=== PATIENT | female | born 1995 | race African-American/Black ===

== ENCOUNTER 2017-11-26 10:32 | Emergency (ER) | payer OTHER ==
[2017-11-26 11:08] LABS: HEMOGLOBIN 10.7 g/dl (12.0-16.0); IMMATURE GRANULOCYTES 0.3 % (0.0-1.0); MEAN CELL VOLUME 91.4 fL CALC (80.0-100.0); MEAN CORPUSCULAR HGB 27.9 pG CALC (26.0-32.0); MEAN CORPUSCULAR HGB CONC 30.6 g/L CALC (32.0-36.0); NEUT# 10.04 thou/uL (2.00-7.15); RED BLOOD COUNT 3.83 mill/uL (4.20-5.60); RED CELL DISTRI WIDTH 13.2 % (11.5-15.5)
[2017-11-26 11:33] LABS: ALBUMIN 4.2 g/dL (3.2-5.0); ALKALINE PHOSPHATASE 69 u/l (38-126); ANION GAP 21 (6-22 (CALC)); BILIRUBIN, TOTAL 0.6 mg/dL (0.0-1.4); BUN 13 mg/dL (7-17); BUN/CREATININE RATIO 16 (12-20 (CALC)); CARBON DIOXIDE 18 mmol/l (22-30); CHLORIDE 108 mmol/l (95-108); CREATININE 0.8 mg/dL (0.5-1.0); GFR > 60 ML/MIN (>=60 (CALC)); GFR FOR AFR.AMER. > 60 ML/MIN (>=60 (CALC)); POTASSIUM 3.5 mmol/l (3.5-5.1); SGOT/AST 45 u/l (14-36); SGPT/ALT 24 u/l (9-52); SODIUM 144 mmol/l (137-146); TOTAL PROTEIN 7.8 g/dL (6.3-8.2)
[2017-11-26 12:46] LABS: URINE BILIRUBIN - DIPSTICK NEGATIVE (NEGATIVE); URINE BLOOD DIPSTICK NEGATIVE (NEGATIVE); URINE GLUCOSE - DIPSTICK NEGATIVE (NEGATIVE); URINE KETONE 40 mg/dL (NEGATIVE); URINE LEUK ESTERASE NEGATIVE (NEGATIVE); URINE NITRITE - DIPSTICK NEGATIVE (Negative); URINE PH 5.5 (4.5-8.0); URINE PROTEIN - DIPSTICK TRACE mg/dL (NEG-TRACE); URINE SPECIFIC GRAVITY >=1.030
[2017-11-26 12:47] LABS: URINE CLARITY SL CLOUDY; URINE COLOR DK. YELLOW
[2017-11-26 12:49] LABS: BARBITURATES NEGATIVE (NEGATIVE); COCAINE NEGATIVE (NEGATIVE); METHADONE NEGATIVE (NEGATIVE); OXCYCODONE NEGATIVE (NEGATIVE); TETRAHYDROCANNABIONOL NEGATIVE (NEGATIVE); TRICYLIC ANTIDEPRESSANTS NEGATIVE (NEGATIVE)
[2017-11-26 13:45] VITALS: BP 104/67
== END 2017-11-26 13:51 | disposition home or self-care (01) | DRG 312 ==
LOC: ED 10:32
PROVIDERS: Emergency Medicine
DX: R55 Syncope and collapse (principal); R51 Headache; Y93.E1 Activity, personal bathing and showering; Y92.002 Bathroom of unspecified non-institutional (private) residence as the place of occurrence of the external cause

== ENCOUNTER 2018-07-24 15:20 | Emergency (ER) | payer OTHER ==
[~2018-07-24] VITALS: Ht 162.6 cm; Wt 60.0 kg
[2018-07-24 19:33] LABS: HEMATOCRIT 39.4 % (37.0-47.0); HEMOGLOBIN 12.4 g/dl (12.0-16.0); IMMATURE GRANULOCYTES 0.1 % (0.0-5.0); MEAN CELL VOLUME 90.2 fL CALC (80.0-100.0); MEAN CORPUSCULAR HGB 28.4 pG CALC (26.0-32.0); MEAN CORPUSCULAR HGB CONC 31.5 g/L CALC (32.0-36.0); NEUT# 4.38 thou/uL (2.00-7.15); RED BLOOD COUNT 4.37 mill/uL (4.20-5.60); RED CELL DISTRI WIDTH 12.5 % (11.5-15.5)
[2018-07-24 21:11] LABS: URINE BILIRUBIN - DIPSTICK NEGATIVE (NEGATIVE); URINE BLOOD DIPSTICK NEGATIVE (NEGATIVE); URINE COLOR YELLOW; URINE GLUCOSE - DIPSTICK NEGATIVE (NEGATIVE); URINE KETONE >=80 mg/dL (NEGATIVE); URINE LEUK ESTERASE NEGATIVE (NEGATIVE); URINE NITRITE - DIPSTICK NEGATIVE (Negative); URINE PROTEIN - DIPSTICK NEGATIVE (NEG-TRACE); URINE SPECIFIC GRAVITY 1.025
[2018-07-24 21:55] VITALS: BP 132/82
== END 2018-07-24 21:55 | disposition home or self-care (01) ==
LOC: ED 15:20
PROVIDERS: Family Medicine
DX: O20.0 Threatened abortion (principal); Z3A.00 Weeks of gestation of pregnancy not specified; R10.11 Right upper quadrant pain; N93.9 Abnormal uterine and vaginal bleeding, unspecified

== ENCOUNTER → 2018-10-24 | Outpatient (REF) | payer OTHER ==
[2018-10-24 11:16] LABS: HEMATOCRIT 43.2 % (37.0-47.0); HEMOGLOBIN 12.9 g/dl (12.0-16.0); IMMATURE GRANULOCYTES 0.4 % (0.0-5.0); MEAN CELL VOLUME 93.7 fL CALC (80.0-100.0); MEAN CORPUSCULAR HGB CONC 29.9 g/L CALC (32.0-36.0); NEUT# 3.05 thou/uL (2.00-7.15); RED BLOOD COUNT 4.61 mill/uL (4.20-5.60)
[2018-10-24 11:41] LABS: ALBUMIN 5.6 g/dL (3.2-5.0); ALKALINE PHOSPHATASE 89 u/l (38-126); ANION GAP 17 (6-22 (CALC)); BILIRUBIN, TOTAL 0.7 mg/dL (0.0-1.4); BUN 14 mg/dL (7-17); BUN/CREATININE RATIO 19 (12-20 (CALC)); CALCULATED LDLCHOLESTEROL 35 mg/dL (62-129 (CALC)); CARBON DIOXIDE 24 mmol/l (22-30); CHLORIDE 103 mmol/l (95-108); CHOLESTEROL HDL RATIO 1.4 (<4.4 (CALC)); CREATININE 0.8 mg/dL (0.5-1.0); GFR > 60 ML/MIN (>=60 (CALC)); GFR FOR AFR.AMER. > 60 ML/MIN (>=60 (CALC)); HDL CHOLESTEROL 97 mg/dL (>=40); POTASSIUM 4.4 mmol/l (3.5-5.1); SGOT/AST 29 u/l (14-36); SODIUM 140 mmol/l (137-146); TOTAL CHOLESTEROL 138 mg/dl (0-199); TOTAL PROTEIN 9.4 g/dL (6.3-8.2); TOTAL TRIGLYCERIDES 32 mg/dl (30-149); VLDL CHOLESTROL 6 mg/dl (2-29 (CALC))
[2018-10-24 12:13] LABS: TSH, 3RD GENERATION 1.58 uIU/mL (0.47 - 4.68)
[2018-10-31 05:46] LABS: THYROID PEROXIDASE AB_i 1 IU/mL (<9)
== END | disposition home or self-care (01) ==
LOC: LAB 09:52
DX: Z00.00 Encounter for general adult medical examination without abnormal findings (principal)

== ENCOUNTER 2018-12-13 08:47 | Emergency (ER) | payer OTHER ==
[~2018-12-13] VITALS: Ht 162.6 cm; Wt 57.3 kg
[2018-12-13 09:25] LABS: IMMATURE GRANULOCYTES 0.4 % (0.0-5.0); MEAN CELL VOLUME 90.2 fL CALC (80.0-100.0); MEAN CORPUSCULAR HGB 28.2 pG CALC (26.0-32.0); MEAN CORPUSCULAR HGB CONC 31.3 g/L CALC (32.0-36.0); NEUT# 2.74 thou/uL (2.00-7.15); RED BLOOD COUNT 3.86 mill/uL (4.20-5.60); RED CELL DISTRI WIDTH 13.4 % (11.5-15.5)
[2018-12-13 09:27] LABS: HEMATOCRIT 34.8 % (37.0-47.0); HEMOGLOBIN 10.9 g/dl (12.0-16.0)
[2018-12-13 09:45] LABS: ALBUMIN 4.3 g/dL (3.2-5.0); ALKALINE PHOSPHATASE 68 u/l (38-126); ANION GAP 11 (6-22 (CALC)); BUN 13 mg/dL (7-17); BUN/CREATININE RATIO 19 (12-20 (CALC)); CARBON DIOXIDE 26 mmol/l (22-30); CHLORIDE 106 mmol/l (95-108); CREATININE 0.7 mg/dL (0.5-1.0); GFR > 60 ML/MIN (>=60 (CALC)); GFR FOR AFR.AMER. > 60 ML/MIN (>=60 (CALC)); LIPASE 47 u/l (23-300); POTASSIUM 4.3 mmol/l (3.5-5.1); SGOT/AST 23 u/l (14-36); SODIUM 138 mmol/l (137-146); TOTAL PROTEIN 7.4 g/dL (6.3-8.2)
[2018-12-13 09:47] LABS: BILIRUBIN, TOTAL 0.4 mg/dL (0.0-1.4)
[2018-12-13 10:02] LABS: URINE BILIRUBIN - DIPSTICK NEGATIVE (NEGATIVE); URINE BLOOD DIPSTICK MODERATE (NEGATIVE); URINE COLOR YELLOW; URINE GLUCOSE - DIPSTICK NEGATIVE (NEGATIVE); URINE KETONE NEGATIVE (NEGATIVE); URINE LEUK ESTERASE NEGATIVE (NEGATIVE); URINE NITRITE - DIPSTICK NEGATIVE (Negative); URINE PH 6.5 (4.5-8.0); URINE PROTEIN - DIPSTICK NEGATIVE (NEG-TRACE)
[2018-12-13 10:15] LABS: URINE SQUAMOUS EPITHELIAL CELL FEW EPI/hpf (0-FEW); URINE WBC 0-2 WBC/hpf (0-5)
[2018-12-13 10:34] VITALS: BP 140/68
[2018-12-13] MEDS ORDERED: DOXYCYC MONO100 M2 PO (18:34)
== END 2018-12-13 10:57 | disposition home or self-care (01) ==
LOC: ED 08:47
PROVIDERS: Family Medicine
DX: R10.31 Right lower quadrant pain (principal); L29.9 Pruritus, unspecified
CPT/HCPCS: Q9967

== ENCOUNTER 2018-12-13 16:43 | Emergency (ER) | payer OTHER ==
[~2018-12-13] VITALS: Ht 162.6 cm; Wt 57.0 kg
[2018-12-13 18:34] VITALS: BP 136/82
[2018-12-13] MEDS ORDERED: DOXYCYC MONO100 M2 PO (18:34)
== END 2018-12-13 18:53 | disposition home or self-care (01) ==
LOC: ED 16:43
DX: Z03.89 Encounter for observation for other suspected diseases and conditions ruled out (principal); N83.201 Unspecified ovarian cyst, right side; R10.9 Unspecified abdominal pain

== ENCOUNTER 2019-01-09 20:57 | Emergency (ER) | payer OTHER ==
[~2019-01-09] VITALS: Ht 162.6 cm; Wt 57.0 kg
[~2019-01-09 20:57] MED LIST: DOXYCYC MONO100 M2 PO
[2019-01-09 21:34] LABS: URINE BILIRUBIN - DIPSTICK NEGATIVE (NEGATIVE); URINE BLOOD DIPSTICK MODERATE (NEGATIVE); URINE COLOR YELLOW; URINE GLUCOSE - DIPSTICK NEGATIVE (NEGATIVE); URINE KETONE TRACE mg/dL (NEGATIVE); URINE NITRITE - DIPSTICK NEGATIVE (Negative); URINE PROTEIN - DIPSTICK TRACE mg/dL (NEG-TRACE); URINE UROBILINOGEN - DIPSTICK 0.2 E.U./dL (0.2)
[2019-01-09 21:41] LABS: URINE LEUK ESTERASE LARGE (NEGATIVE)
[2019-01-09 21:52] LABS: URINE RBC TNTC RBC/hpf (0-5)
[2019-01-09 21:53] LABS: URINE BACTERIA FEW hpf; URINE SQUAMOUS EPITHELIAL CELL FEW EPI/hpf (0-FEW); URINE WBC TNTC WBC/hpf (0-5)
[2019-01-09] MEDS ORDERED: BACTRIM DS1 TAB PO (22:01)
[2019-01-09 22:08] VITALS: BP 123/80
== END 2019-01-09 22:13 | disposition home or self-care (01) ==
LOC: ED 20:57
PROVIDERS: Family Medicine
DX: N30.00 Acute cystitis without hematuria (principal); B96.20 Unspecified Escherichia coli [E. coli] as the cause of diseases classified elsewhere

== ENCOUNTER 2019-02-28 15:48 | Emergency (ER) | payer OTHER ==
[~2019-02-28] VITALS: Ht 162.6 cm; Wt 57.7 kg
[~2019-02-28 15:48] MED LIST changes: +BACTRIM DS1 TAB PO
[2019-02-28] MEDS ORDERED: AMOXICILLIN500 M2 PO (16:05)
[2019-02-28 16:10] VITALS: BP 118/75
[2019-03-01] MEDS ORDERED: DIFLUCAN100 M1 PO (20:43)
== END 2019-02-28 16:10 | disposition home or self-care (01) ==
LOC: ED 15:48
DX: J02.0 Streptococcal pharyngitis (principal)

== ENCOUNTER 2019-03-01 19:39 | Emergency (ER) | payer OTHER ==
[~2019-03-01] VITALS: Ht 162.6 cm; Wt 57.7 kg
[~2019-03-01 19:39] MED LIST changes: +AMOXICILLIN500 M2 PO
[2019-03-01] MEDS ORDERED: DIFLUCAN100 M1 PO (20:43)
[2019-03-01 20:49] VITALS: BP 124/73
== END 2019-03-01 20:54 | disposition home or self-care (01) ==
LOC: ED 19:39
DX: B37.3 Candidiasis of vulva and vagina (principal)

== ENCOUNTER 2021-05-08 14:20 | Emergency (ER) | payer OTHER ==
[~2021-05-08] VITALS: Ht 162.6 cm; Wt 74.0 kg
[~2021-05-08 14:20] MED LIST changes: +DIFLUCAN100 M1 PO
[2021-05-08 15:27] LABS: HEMATOCRIT 35.9 % (37.0-47.0); HEMOGLOBIN 11.3 g/dl (12.0-16.0); MEAN CELL VOLUME 88.2 fL CALC (80.0-100.0); MEAN CORPUSCULAR HGB 27.8 pG CALC (26.0-32.0); MEAN CORPUSCULAR HGB CONC 31.5 g/dL CAL (32.0-36.0); NEUT# 3.01 thou/uL (2.00-7.15); RED BLOOD COUNT 4.07 mill/uL (4.20-5.60); RED CELL DISTRI WIDTH 13.7 % (11.5-15.5)
[2021-05-08 15:47] LABS: ALBUMIN 4.3 g/dL (3.2-5.0); ALKALINE PHOSPHATASE 91 u/l (38-126); ANION GAP 13 (6-22 (CALC)); BUN 6 mg/dL (7-17); BUN/CREATININE RATIO 10 (12-20 (CALC)); CARBON DIOXIDE 25 mmol/l (22-30); CHLORIDE 104 mmol/l (95-108); CREATININE 0.6 mg/dL (0.5-1.0); GFR > 60 ML/MIN (>=60 (CALC)); GFR FOR AFR.AMER. > 60 ML/MIN (>=60 (CALC)); POTASSIUM 3.8 mmol/l (3.5-5.1); SGOT/AST 31 u/l (14-36); SODIUM 137 mmol/l (137-146); TOTAL PROTEIN 7.5 g/dL (6.3-8.2)
[2021-05-08 15:52] LABS: BILIRUBIN, TOTAL 0.7 mg/dL (0.0-1.4)
[2021-05-08] MEDS ORDERED: LABETALOL HYDR200 MG PO (16:39)
[2021-05-08] MEDS ORDERED: JENCYCLA0.35 MG PO (16:39)
[2021-05-08] MEDS ORDERED: NIFEDIPINE ER30 MG PO (16:40)
[2021-05-08 17:06] VITALS: BP 122/62
== END 2021-05-08 17:01 | disposition home or self-care (01) ==
LOC: ED 14:20
PROVIDERS: Family Medicine
DX: R55 Syncope and collapse (principal)